=== PATIENT | female | born 1985 | race Two or more races ===

== ENCOUNTER 2018-11-30 10:12 | Emergency (ER) | payer MEDICAID, OTHER ==
[~2018-11-30] VITALS: Ht 152.4 cm; Wt 104.3 kg
[2018-11-30 10:27] VITALS: BP 150/91
== END 2018-11-30 11:34 | disposition home or self-care (01) ==
LOC: ER 10:12
DX: S62.617A Displaced fracture of proximal phalanx of left little finger, initial encounter for closed fracture (principal); Z88.6 Allergy status to analgesic agent; W22.01XA Walked into wall, initial encounter; Y93.89 Activity, other specified; Y92.098 Other place in other non-institutional residence as the place of occurrence of the external cause; Y99.8 Other external cause status
CPT/HCPCS: 29125; 73140